=== PATIENT | female | born 1985 | race Caucasian/White ===

== ENCOUNTER 2018-06-14 21:43 | Inpatient (IN) | payer BC ==
[~2018-06-14] VITALS: Ht 167.6 cm; Wt 85.5 kg
--- NOTE | 2018-06-14 21:50 | NUR ---
PT TO UNIT AMBULATORY WITH C/O OF SROM AT 2019. PT ORIENTED TO ROOM, CHANGED INTO GOWN. AMNIOSWAB POSITIVE, SVE PERFORMED, VS OBTAINED, EFM APPLIED.
[2018-06-14 22:30] VITALS: BP 173/94; PULSE 90; TEMP 98.2
[2018-06-14 23:00] VITALS: BP 133/79; PULSE 75
[2018-06-14 23:15] VITALS: BP 173/94; PULSE 90; TEMP 98.2
[2018-06-14] MEDS ORDERED: PRENATAL PO (23:19)
[2018-06-14] MEDS ORDERED: TYLENOL PM EXTR1 TA1 PO (23:21)
[2018-06-14 23:22] LABS: COLLECTION METHOD CLEAN CATCH
[2018-06-14 23:26] LABS: BASO % 0.3 % (0.0-2.0); EOS # 0.1 (0.0-0.7); EOS % 0.8 % (0-4.0); GRAN # 7.3 (1.4-6.5); GRAN % 63.8 % (42.2-75.2); HEMATOCRIT 36.7 % (37.0-47.0); HEMOGLOBIN 12.1 g/dl (12.5-16.0); LYMPH % 26.5 % (20.0-51.0); MEAN CELL VOLUME 88 fl (80.0-100.0); MEAN CORPUSCULAR HEMOGLOBIN 29 pg (27.0-31.0); MEAN CORPUSCULAR HGB CONC 33 g/dl (33.0-37.0); MEAN PLATELET VOLUME 11.2 fl (7.4-10.4); MONO # 0.9 (0.1-0.6); MONO % 8.2 % (1.7-9.3); PLATELET COUNT 260 K/mm3 (130-400); RED BLOOD COUNT 4.16 M/mm3 (4.10-5.30); REDCELL DISTRIBUTION WIDTH-CV 14.4 % (11.5-14.5)
[2018-06-14 23:30] VITALS: BP 136/79; PULSE 78
--- NOTE | 2018-06-14 23:30 | NUR ---
DIFFICULTY DETERMINING CONTRACTION PATTERN DUE TO MATERNAL POSITION IN LEFT WEDGE.
[2018-06-14 23:35] LABS: MUCOUS Present /lpf; PH 6 (5-8); SQUAMOUS EPITHELIAL 0-2 /hpf; URINE APPEARANCE Clear; URINE BACTERIA None Seen /hpf; URINE BILIRUBIN Negative (NEGATIVE); URINE BLOOD 1+ (NEGATIVE); URINE COLOR Yellow; URINE GLUCOSE Negative (NEGATIVE); URINE KETONE Negative (NEGATIVE); URINE LEUKOCYTE ESTERASE Negative (NEGATIVE); URINE NITRATE Negative (NEGATIVE); URINE PROTEIN(semi-quant) Negative (NEGATIVE); URINE UROBILINOGEN Negative (NEGATIVE); URINE WBC 0-2 /hpf
[2018-06-14 23:36] LABS: ALBUMIN 3.4 gm/dL (3.5-5.0); BILIRUBIN,TOTAL 0.1 mg/dL (0.0-1.0); CALCIUM 8.9 mg/dL (8.4-10.2); CREATININE, serum 0.41 mg/dL (0.52-1.25); POTASSIUM 3.7 mmol/L (3.4-5.0); TOTAL PROTEIN 6.9 gm/dL (6.4-8.2)
[2018-06-15] VITALS (37 sets, daily range): BP systolic 116–180; BP diastolic 58–99; PULSE 82–122; TEMP 97.7–99
--- NOTE | 2018-06-15 00:30 | NUR ---
0013- Precious JARAMILLO CRNA IN ROOM TO PLACE EPIDURAL. 0016- TIMEOUT COMPLETED. 0027- TEST DOSE GIVEN BY Precious JARAMILLO CRNA. 0030- PT TOLERATED EPIDURAL PLACEMENT WELL. REPOSITIONED WITH SEMIFOWLERS.
--- NOTE | 2018-06-15 01:45 | NUR ---
DIFFICULTY TRACING CONTRACTION PATTERN DUE TO MATERNAL POSITION, TOCO ADJUSTED.
--- NOTE | 2018-06-15 02:50 | NUR ---
DR. ALVES NOTIFIED OF SVE OF 2. I HAVE SEEN A FEW INTERMITTENT LATE DECELS BUT ALL HAVE RESOLVED WITHOUT INTERVENTION. DR. ALVES REQUESTS TO CONTINUE WITH CURRENT PLAN OF CARE.
--- NOTE | 2018-06-15 03:30 | NUR ---
DIFFICULTY TRACING CONTRACTION PATTERN, TOCO ADJUSTED.
--- NOTE | 2018-06-15 04:00 | NUR ---
DIFFICULTY TRACING FHT'S DUE TO MOVEMENT AND MATERNAL POSITION. US ADJUSTED.
--- NOTE | 2018-06-15 05:00 | NUR ---
0446- CONTINUE TO HAVE DIFFICULTY TRACING CONTRACTIONS WITH PT IN RIGHT LATERAL, DECELERATION NOTED AT THIS TIME. THIS NURSE INTO ROOM TO EVALUATE. 0450- SVE OF COMPLETE/0. DECELERATION RECOVERED WITH SCALP STIMULATION. 0453- PT BEGINS PUSHING WITH THIS NURSE. 0459- DC'D LOZA, 500ML YELLOW URINE OUT. 0521- DR. ALVES CALLED FOR DELIVERY. 0545- DR. ALVES IN ROOM TO EVALUATE. REMAINS ON UNIT, PT CONTINUES TO PUSH WITH THIS NURSE. 06- DR. ALVES TO ROOM, BED BROKEN DOWN FOR DELIVERY. 0647- SPONTANEOUS VAGINAL DELIVERY OF VIABLE BABY GIRL. BABY TO MOTHER'S ABDOMEN, CARE ASSUMED BY Karl DAVISON RN. 0650- SPONTANEOUS DELIVERY OF INTACT PLACENTA. PITOCIN STARTED PER PROTOCOL. PT'S CARE ASSUMED BY HAYDE HAMMER.
--- NOTE | 2018-06-15 09:30 | NUR ---
Patient able to hold bilateral leg lock. Vaginal bleeding WNL. Patient assisted to sit on edge of bed, tolerates well. Denies dizziness. Assisted to wheelchair with 2 RN standby and transferred to bathroom. Assisted to toilet. Unable to void at this time. Patient reports sudden onset of dizziness and ringing in ears. Assisted back to wheelchair by 2 RN, patient loses consciousness for approximately 30 seconds. Back to consciousness with ammonia and cool rag. Assisted back to bed. VS WNL, vaginal bleeding WNL. Patient reports feeling much better.Straight cath performed, pericare given. Patient encouraged to rest in LR at this time.
[2018-06-16 05:00] VITALS: BP 132/81; PULSE 84; TEMP 98.2
[2018-06-16 09:30] VITALS: BP 130/77; PULSE 87; TEMP 98.3
--- NOTE | 2018-06-16 10:17 | NUR ---
Initial visit attempt; Family resting, Emblem Maker left card of congratulations for the of their daughter and information regarding the availability of [facility] at [facility].
[2018-06-16] MEDS ORDERED: IBU600 MG PO (10:29)
[2018-06-16] MEDS ORDERED: PERCOCET 325 MG1 TA2 PO (10:29)
[2018-06-16 14:00] VITALS: BP 130/67; PULSE 85; TEMP 98
--- NOTE | 2018-06-16 15:35 | NUR ---
Discharge instructions reviewed with patient. Percocet script given and explained. Patient, and family escorted out to vehicle.
== END 2018-06-16 15:45 | disposition home or self-care (01) | DRG 807 ==
LOC: LDRO 21:43 → LDR 22:37 → OB 06-15 11:35
PROVIDERS: Obstetrics & Gynecology; ADMIT Student in an Organized Health Care Education/Training Program
PROC: 10E0XZZ Delivery of Products of Conception, External Approach (ICD-10-PCS; principal; 2018-06-15)
PROC: 0KQM0ZZ Repair Perineum Muscle, Open Approach (ICD-10-PCS; 2018-06-15)
DX: O13.4 Gestational [pregnancy-induced] hypertension without significant proteinuria, complicating childbirth (principal); Z37.0 Single live birth; Z3A.40 40 weeks gestation of pregnancy; O70.1 Second degree perineal laceration during delivery; Z28.21 Immunization not carried out because of patient refusal; L30.9 Dermatitis, unspecified
CPT/HCPCS: J1200; J2590; J7120